=== PATIENT | female | born 1995 | race African-American/Black ===

== ENCOUNTER 2023-08-05 16:05 | Outpatient (REF) | payer MEDICAID, OTHER, SELFPAY ==
--- NOTE | ~2023-08-05 | XR_ITS ---
EXAMINATION: XR CHEST CLINICAL INFORMATION: Weight loss and cervical lymphadenopathy COMPARISON: None available. TECHNIQUE: 2 views of the chest were obtained. FINDINGS: No significant abnormality is noted involving the heart, lungs, mediastinum, bony thorax or soft tissues. XR/XR chest 2V IMPRESSION: Unremarkable examination.
== END 2023-08-05 16:06 | disposition home or self-care (01) ==
LOC: HO.HHCX 16:05
PROVIDERS: Visit Provider Student in an Organized Health Care Education/Training Program
DX: R59.0 Localized enlarged lymph nodes (principal); R63.4 Abnormal weight loss
CPT/HCPCS: 36415; 71046; 80053; 84443

== ENCOUNTER 2023-08-05 16:12 | Outpatient (REF) | payer MEDICAID, SELFPAY | END 2023-08-05 16:13 | disposition home or self-care (01) | LOC: HO.HHCX 16:12 | PROVIDERS: Visit Provider Student in an Organized Health Care Education/Training Program | DX: Z13.89 Encounter for screening for other disorder (principal) ==

== ENCOUNTER 2023-08-05 16:29 | Outpatient (REF) | payer MEDICAID, SELFPAY ==
[2023-08-05 18:09] LABS: Alanine Aminotransferase 12 U/L (0-31); Albumin Level 4.7 g/dL (3.5-5.0); Alkaline Phosphatase 66 U/L (39-117); Anion Gap 11 (12-20); Aspartate Amino Transferase 17 U/L (5-31); Bilirubin Total 0.3 mg/dL (0.0-1.0); Blood Urea Nitrogen 10 mg/dL (9-16); Calcium 9.9 mg/dL (8.4-10.2); Carbon Dioxide 26 mmol/L (22-29); Chloride 105 mmol/L (96-108); Estimated Glomerular Filt Rate > 60; Glucose Random 86 mg/dL (60-115); Potassium 3.9 mmol/L (3.3-5.1); Sodium 138 mmol/L (135-145); Total Protein 8.2 g/dL (6.5-8.0)
[2023-08-05 18:25] LABS: TSH reflex Free T4 1.91 uIU/mL (0.32-4.0)
== END 2023-08-05 16:30 | disposition home or self-care (01) ==
LOC: HO.HHCL 16:29
PROVIDERS: Visit Provider Student in an Organized Health Care Education/Training Program
DX: R59.0 Localized enlarged lymph nodes (principal); R63.4 Abnormal weight loss
CPT/HCPCS: 36415; 80053; 84443

== ENCOUNTER 2023-08-09 08:24 | Outpatient (REF) | payer MEDICAID, OTHER, SELFPAY ==
[2023-08-09 11:32] LABS: Hematocrit 34.7 % (37.0-47.0); Hemoglobin 11.2 g/dl (12.0-16.0); Mean Corpuscular HGB Conc 32.3 g/dl (31.0-35.0); Mean Corpuscular Hemoglobin 27.1 pg (27.0-33.0); Mean Corpuscular Volume 83.8 fL (80.0-98.0); Mean Platelet Volume 11.4 fL (9.4-12.3); Platelet Count 269 X10*3/uL (160-400); Red Blood Count 4.14 X10*6/uL (4.20-5.50); Red Cell Distribution Width 13.5 % (11.0-16.0); White Blood Count 3.6 X10*3/uL (4.8-10.8)
[2023-08-09 11:43] LABS: Estimated Average Glucose 108 mg/dL; Hemoglobin A1c % 5.4 % (<6.0)
[2023-08-09 12:12] LABS: HBsAGNum1 0.35 S/CO (0.00-0.99); HIV AB/AG Nonreactive (Nonreactive); HIV Num 1 0.08 S/CO (0.00-0.99); Hepatitis B Core Antibody Nonreactive (Nonreactive); Hepatitis B Surface Antigen Negative (Negative); Syphilis Screen Nonreactive (Nonreactive); ~HepC Num1 0.14 S/CO (0.00-0.79); ~Hepatitis B Surface Antibody NONREACTIVE (Nonreactive); ~Hepatitis C Antibody Nonreactive (Nonreactive)
[2023-08-12 00:39] LABS: TS Negative Control Passed; TS Panel A 0; TS Panel B 0; TS Positive Control Passed; TSpotTB Negative (Negative)
== END 2023-08-09 08:25 | disposition home or self-care (01) ==
LOC: HO.HHCL 08:24
PROVIDERS: Visit Provider Student in an Organized Health Care Education/Training Program
DX: Z11.4 Encounter for screening for human immunodeficiency virus [HIV] (principal); R59.0 Localized enlarged lymph nodes; R63.4 Abnormal weight loss
CPT/HCPCS: 36415; 83036; 85027; 86481; 86704; 86706; 86780; 86803; 87340; 87389

== ENCOUNTER 2023-08-26 15:51 | Outpatient (REF) | payer SELFPAY ==
[2023-08-26 17:27] LABS: Hematocrit 34.9 % (37.0-47.0); Hemoglobin 11.4 g/dl (12.0-16.0); Mean Corpuscular HGB Conc 32.7 g/dl (31.0-35.0); Mean Corpuscular Hemoglobin 27.3 pg (27.0-33.0); Mean Corpuscular Volume 83.7 fL (80.0-98.0); Mean Platelet Volume 11.3 fL (9.4-12.3); Platelet Count 251 X10*3/uL (160-400); Red Blood Count 4.17 X10*6/uL (4.20-5.50); Red Cell Distribution Width 13.7 % (11.0-16.0); White Blood Count 4.9 X10*3/uL (4.8-10.8)
[2023-08-26 17:49] LABS: Iron 78 mcg/dL (30-160); Lactate Dehydrogenase 166 U/L (122-220); Percent Iron Saturation 32 % (15-50); Total Iron Binding Capacity 247 mcg/dL (228-428); Unsaturated Iron Binding 169 ug/dL
[2023-08-26 18:05] LABS: Ferritin 86 ng/mL (10-122)
[2023-08-26 18:17] LABS: Folate 10.5 ng/mL (> or = 4.0); Vitamin B12 541 pg/mL (200-900)
== END 2023-08-26 15:52 | disposition home or self-care (01) ==
LOC: HO.HHCL 15:51
PROVIDERS: Visit Provider Student in an Organized Health Care Education/Training Program
DX: R22.1 Localized swelling, mass and lump, neck (principal); D64.9 Anemia, unspecified
CPT/HCPCS: 36415; 82607; 82728; 82746; 83540; 83615; 85027

== ENCOUNTER 2023-11-07 13:51 | Outpatient (REF) | payer MEDICAID, OTHER, SELFPAY ==
[2023-11-07 16:31] LABS: TSH reflex Free T4 2.05 uIU/mL (0.32-4.0)
[2023-11-08 07:35] LABS: HIV AB/AG Nonreactive (Nonreactive); HIV Num 1 0.05 S/CO (0.00-0.99); ~HepC Num1 0.09 S/CO (0.00-0.79); ~Hepatitis C Antibody Nonreactive (Nonreactive)
[2023-11-08 09:40] LABS: CT PCR NOT DETECTED (Not Detect.); NG PCR NOT DETECTED (Not Detect.)
[2023-11-08 12:38] LABS: RPR Rapid Plasma Reagin NON-REACTIVE (NON-REACTIVE)
== END 2023-11-07 13:52 | disposition home or self-care (01) ==
LOC: HO.HHCL 13:51
PROVIDERS: Visit Provider General Practice
DX: D64.9 Anemia, unspecified (principal); Z11.3 Encounter for screening for infections with a predominantly sexual mode of transmission
CPT/HCPCS: 0353U; 36415; 84443; 86592; 86803; 87389

== ENCOUNTER 2024-04-28 13:45 | Emergency (ER) | payer MEDICAID, OTHER, SELFPAY ==
--- NOTE | ~2024-04-28 | US_ITS ---
EXAMINATION: US OBSTETRICAL ULTRASOUND CLINICAL INFORMATION: Nausea and vomiting. Abdominal cramping. Confirm IUP. COMPARISON: None available. LMP: 03/21/2024. Gestational age by maternal dates is 5 weeks 3 days. Estimated date of delivery by maternal dates is 12/26/2024. TECHNIQUE: Transabdominal and transvaginal imaging was obtained. FINDINGS: There is a single intrauterine gestational sac with visible yolk sac, embryo/fetus, and cardiac activity. Heterogeneous echogenicity adjacent to the gestational sac measuring approximately 3.8 x 2.4 cm. Findings may represent subchorionic hemorrhage. HR: 121 beats per minute. CRL (crown rump length): 0.7 cm (6 weeks 5 days +/- 4 days). ELANA (estimated date of delivery): 12/17/2024 +/- 4 days. MATERNAL ADNEXA: The right maternal ovary measures 4 x 2.2 x 3 cm. Probable right ovarian corpus luteum measuring up to 2.5 cm. The left maternal ovary measures 3.9 x 2.2 x 2.5 cm. Doppler detectable vascular flow within the right and left ovary. No maternal pelvic ascites. US/US OB pelvic and transvaginal IMPRESSION: 1. Single intrauterine gestation with ultrasound gestational age of 6 weeks 5 days +/- 4 days. 2. Estimated date of delivery is 12/17/2024 +/- 4 days. 3 3. Probable subchorionic hemorrhage measuring up to 3.8 cm. Electronically signed by: Jose Freed MD 04/28/2024 04:06 PM [facility]
[2024-04-28 13:52] VITALS: BP 99/79; PULSE 108; RESP 16; TEMP 36.6; O2SAT 100; BMI 19.6
--- NOTE | 2024-04-28 13:53 | ED.GENADULT ---
HPI - General Adult General Chief complaint: General Medical Stated complaint: preg+, not feeling well Time Seen by Provider: 04/28/24 14:27 Source: patient and tapping machine operator automatic Mode of arrival: ambulatory Limitations: language barrier History of Present Illness ED Provider: Annabel HPI narrative: Patient is a 28-year-old Irish Creole speaking female presenting to the emergency department with complaint of nausea and vomiting for the past 2 weeks as well as epigastric pain associated with vomiting, recent positive test. States that she went to the clinic and had confirmed there, is following up with [facility] for her care but has not been seen there yet. She does report some dark colored urine but denies frequency, dysuria, foul odor, back or flank pain. Denies fevers. Denies diarrhea. Denies any vaginal bleeding or other abnormal vaginal discharge. MD complaint: Nausea and vomiting Onset (ago): week(s) Treatments prior to arrival: none Related Data Previous Rx's ?Medication ?Instructions ?Recorded cephalexin 500 mg capsule 500 mg PO QID #28 caps 04/28/24 ondansetron HCl 4 mg tablet 4 mg PO Q8H PRN nausea and 04/28/24 vomiting #14 tabs Allergies Allergy/AdvReac Type Severity Reaction Status Date / Time No Known Allergies Allergy Verified 04/28/24 13:59 Review of Systems Review of Systems: As per HPI Yes all other systems are reviewed and are negative Constitutional: Constitutional: Reports as per HPI [facility] Social History Social History (System 08/29/23 @ 13:47 by Roxanne Marie) Advance Directives: No Advance Directives Information Provided: No Physical Exam ED Vital Signs: Vital Signs - 24 hr 04/28/24 13:52 Temperature 97.9 F Pulse Rate 108 H Respiratory Rate 16 Blood Pressure 99/79 Pulse Oximetry 100 Oxygen Delivery Method Room Air BMI result Body Mass Index 19.6 Vital signs have been reviewed and appear to be correct. Blood pressure normal. Heart rate mildly tachycardic. Respiratory rate normal. Temperature normal. Oxygen saturation normal. Const General: cooperative, healthy appearing and no acute distress Orientation/consciousness: oriented to person, oriented to place, oriented to time and patient oriented x3 Limitations: no limitations HENMT Head: Yes normocephalic and Yes atraumatic Ears: external ears normal General nose exam: Normal external nose present Face and sinus: Yes face symmetric Mouth: oropharynx normal and moist mucous membranes Throat: Yes uvula midline Eyes Pupils: Equal, round and reactive pupils present Neck Neck: Yes normal visual inspection and Yes supple Resp Effort & Inspection: normal respiratory effort and able to speak in complete sentences Auscultation: clear to auscultation bilaterally Cardio Rate: regular rate Rhythm: regular rhythm Heart sounds: S1 normal heart sound present and S2 normal heart sound present GI Palpation (GI): Soft to palpation and nontender Auscultation: normoactive bowel sounds General: Yes no CVA tenderness Back/Spine/Pelvis Back: no CVA tenderness Skin General skin exam: elasticity normal and turgor normal Neuro General: oriented to person, oriented to place, oriented to time, patient oriented x3, moves all extremities, no focal motor deficits and CN's II-XI intact bilaterally Cranial nerves: Yes Equal, round and reactive pupils present Cognition (Neuro): normal cognition Extrem General: Yes full ROM, Yes no pedal edema and Yes no calf tenderness Psych Mental Status: mental status grossly normal Affect: normal affect Thought process: Normal thought process present Course Course Course Narrative: This is a Rapid Medical Examination (RME) performed by Uriel Blankenship PA-C in triage. Full HPI, ROS, assessment and treatment plan per primary provider in the Main ED. 28 yo female currently here w/ dizziness, chest pain, vomiting, lower abd pain, decreased PO intake x2 weeks. no vaginal bleeding. admits to epistaxis x2 days. LMP 03/21, states she has seen a provider who has confirmed however is unsure how far along she is. Plan: blood work, UA, hcg, ultrasound, ekg Medical Decision Making Medical Decision Making MDM Narrative: Patient is a 28-year-old Irish Creole speaking female presenting to the emergency department with complaint of nausea and vomiting for the past 2 weeks as well as epigastric pain associated with vomiting, recent positive test. On exam patient is awake, A+Ox3, mildy tachycardic, VS otherwise WNL, afebrile, normal neurological exam without focal deficits, physical exam findings as above. Given reported symptoms and physical exam findings, initial differential includes intrauterine , ectopic , UTI, electrolyte abnormality. Labs notable for mild anemia, no electrolyte abnormalities, HCG of 76,906. Urinalysis notable for 3+ leukocytes, 21-50 WBCs, 4+ bacteria, will treat for UTI. Patient signed out to LIBIA Batista, pending results of ultrasound. Video Irish Creole tapping machine operator automatic was utilized for all interactions, assessments, and discussions. Differential Diagnosis Differential Diagnoses: The differential diagnosis associated with the presentation includes As per [facility] Admission/Observation Consideration of admission/observation: Escalation of care including admission/observation considered Patient would have been admitted to the hospital had their work up had any findings where hospital admission was appropriate and their clinical presentation warranted hospital admission. Lab Data [facility] Lab Attestation statement: I reviewed the patient's lab results. As per [facility] 04/28/24 14:19 04/28/24 14:19 Labs: Lab Results 04/28/24 Range/Units 14:19 WBC 7.4 (4.8-10.8) X10*3/uL RBC 4.17 L (4.20-5.50) X10*6/uL Hgb 11.4 L (12.0-16.0) g/dl Hct 34.4 L (37.0-47.0) % MCV 82.5 (80.0-98.0) fL MCH 27.3 (27.0-33.0) pg MCHC 33.1 (31.0-35.0) g/dl RDW 13.1 (11.0-16.0) % Plt Count 279 (160-400) X10*3/uL MPV 9.8 (9.4-12.3) fL Immature Gran % (Auto) 0.3 (0.0-0.4) % Neut % (Auto) 77.9 H (45-73) % Lymph % (Auto) 14.8 L (20-40) % [place] % (Auto) 6.6 (2-11) % Eos % (Auto) 0.1 (0-4) % Baso % (Auto) 0.3 (0-2) % Lymph # (Auto) 1.1 L (1.2-4.9) X10*3/uL [place] # (Auto) 0.5 (0.1-1.2) X10*3/uL Eos # (Auto) 0.0 (0.0-0.4) X10*3/uL Baso # (Auto) 0.0 (0.0-0.2) X10*3/uL Abs Immat Gran (auto) 0.02 (0.00-0.03) X10*3/uL Absolute Neuts (auto) 5.8 (2.0-8.3) x10*3/uL Absolute Nucleated RBC 0.000 (0.0-0.012) X10*3/uL Nucleated RBC % (auto) 0.0 (0.0-0.2) /100WBC Sodium 137 (135-145) mmol/L Potassium 3.3 (3.3-5.1) mmol/L Chloride 102 (96-108) mmol/L Carbon Dioxide 24 (22-29) mmol/L Anion Gap 14 (12-20) BUN 7 L (9-16) mg/dL Creatinine 0.78 (0.5-1.4) mg/dL Estim Creat Clear Calc 86.2 Estimated GFR > 60 Random Glucose 102 (60-115) mg/dL Calcium 10.1 (8.4-10.2) mg/dL Magnesium 2.4 (1.6-2.6) mg/dL Total Bilirubin 0.6 (0.0-1.0) mg/dL AST 24 (5-31) U/L ALT 20 (0-31) U/L Alkaline Phosphatase 65 (39-117) U/L Troponin I High Sens < 2.7 (<3.5-17.0) ng/L Total Protein 8.1 H (6.5-8.0) g/dL Albumin 4.7 (3.5-5.0) g/dL Lipase 11 (8-78) U/L Beta HCG, Quant 60926 mIU/mL Urine Color Dark Yellow Urine Appearance Turbid Urine pH 6.5 (5.0-9.0) Ur Specific [place] >= 1.030 H (1.005-1.025) Urine Protein 30 (1+) H (Neg-Trace) mg/dL Urine Glucose (UA) Negative (Negative) mg/dL Urine Ketones >=160 (Negative) mg/dL Urine Blood Negative (Negative) Urine Nitrite Negative (Negative) Ur Leukocyte Esterase Large (3+) H (Negative) Urine RBC 0-2 (0-2) /HPF Urine WBC 21-50 H (0-5) /HPF Ur Squamous Epith Cells >20 (0-2) /HPF Urine Bacteria 4+ (None Seen) Hyaline Casts 3-5 (0-2) /LPF Urine Test POSITIVE H (NEGATIVE) Influenza Type A (PCR) NEGATIVE (Negative) Influenza Type B (PCR) NEGATIVE (Negative) RSV RNA Qual (PCR) NEGATIVE (Negative) SARS-CoV-2 RNA (RT-PCR) NEGATIVE (Negative) External Record Review External record reviewed: Inpatient record, Office record and Outpatient record Prescription Management I considered prescription management with: Antibiotic and Other Discharge Plan Discharge Clinical Impression: Urinary tract infection, Patient Disposition: Still a Patient Instructions: (ED), Urinary Tract Infection in (ED), at 7 to 10 Weeks (ED), at 11 to 14 Weeks (ED) Additional Instructions: You were evaluated in the emergency department today for nausea and vomiting in the setting of . Your labs were reassuring. Your urine appears infected and you are being treated with an antibiotic. Complete the full course as prescribed. Follow up with [facility] as planned. You are being prescribed ondansetron for nausea, take as prescribed. Return if you develop fever, are unable to tolerate fluids by mouth, develop vaginal bleeding, or any other new or concerning symptoms. Prescriptions: New ondansetron HCl 4 mg tablet 4 mg PO Q8H PRN (Reason: nausea and vomiting) Qty: 14 0RF cephalexin 500 mg capsule 500 mg PO QID Qty: 28 0RF Referrals: [facility] [Provider Group] [facility] [Provider Group] Print Language: Gypsy Peter
--- NOTE | 2024-04-28 13:59 | ECG_ITS ---
Test Reason : CP Blood Pressure : / mmHG Vent. Rate : 093 BPM Atrial Rate : 093 BPM P-R Int : 148 ms QRS Dur : 068 ms QT Int : 364 ms P-R-T Axes : 082 053 007 degrees QTc Int : 452 ms Normal sinus rhythm Normal ECG No previous ECGs available Referred By: Hannah Blankenship Electronically Signed By:ILIANA YATES
[2024-04-28 14:24] LABS: MANUAL DIFF FLAG NO
[2024-04-28 14:27] LABS: Basophils Percent Auto 0.3 % (0-2); Eosinophils Percent Auto 0.1 % (0-4); Hematocrit 34.4 % (37.0-47.0); Hemoglobin 11.4 g/dl (12.0-16.0); Imm Gran Abs Auto 0.02 X10*3/uL (0.00-0.03); Imm Gran Pct Auto 0.3 % (0.0-0.4); Lymphocytes Absolute Auto 1.1 X10*3/uL (1.2-4.9); Lymphocytes Percent Auto 14.8 % (20-40); Mean Corpuscular HGB Conc 33.1 g/dl (31.0-35.0); Mean Corpuscular Hemoglobin 27.3 pg (27.0-33.0); Mean Corpuscular Volume 82.5 fL (80.0-98.0); Mean Platelet Volume 9.8 fL (9.4-12.3); Monocytes Absolute Auto 0.5 X10*3/uL (0.1-1.2); Monocytes Percent Auto 6.6 % (2-11); Neutrophils Absolute Auto 5.8 x10*3/uL (2.0-8.3); Neutrophils Percent Auto 77.9 % (45-73); Platelet Count 279 X10*3/uL (160-400); Red Blood Count 4.17 X10*6/uL (4.20-5.50); Red Cell Distribution Width 13.1 % (11.0-16.0); White Blood Count 7.4 X10*3/uL (4.8-10.8)
[2024-04-28 14:28] LABS: Appearance Urine Turbid; Color Urine Dark Yellow; Glucose Urine UA Negative (Negative); Leukocyte Esterase Urine Large (3+) (Negative); Nitrite Urine Negative (Negative); PH 6.5 (5.0-9.0); Specific Gravity - Urine >= 1.030 (1.005-1.025); UMIC TRIGGER UACC YES; Urine Blood Negative (Negative); Urine Ketones >=160 mg/dL (Negative); Urine Pregnancy POSITIVE (NEGATIVE); Urine Protein 30 (1+) mg/dL (Neg-Trace)
[2024-04-28 14:29] LABS: UPreg QC Valid YES
[2024-04-28 14:30] LABS: Bacteria Urine 4+ (None Seen); RBC Urine 0-2 /HPF (0-2); Squamous Epithelial Cell Urine >20 /HPF (0-2); UACC Culture Trigger YES; WBC Urine 21-50 /HPF (0-5)
[2024-04-28 14:51] LABS: Alanine Aminotransferase 20 U/L (0-31); Albumin Level 4.7 g/dL (3.5-5.0); Alkaline Phosphatase 65 U/L (39-117); Anion Gap 14 (12-20); Aspartate Amino Transferase 24 U/L (5-31); Bilirubin Total 0.6 mg/dL (0.0-1.0); Blood Urea Nitrogen 7 mg/dL (9-16); Calcium 10.1 mg/dL (8.4-10.2); Carbon Dioxide 24 mmol/L (22-29); Chloride 102 mmol/L (96-108); Creatinine Clr Calc Pharmacy 86.2; Estimated Glomerular Filt Rate > 60; Glucose Random 102 mg/dL (60-115); Lipase 11 U/L (8-78); Magnesium 2.4 mg/dL (1.6-2.6); Potassium 3.3 mmol/L (3.3-5.1); Sodium 137 mmol/L (135-145); Total Protein 8.1 g/dL (6.5-8.0)
[2024-04-28 14:52] LABS: Troponin-I High Sensitivity < 2.7 ng/L (<3.5-17.0)
[2024-04-28 15:05] LABS: Influenza A PCR NEGATIVE (Negative); Influenza B PCR NEGATIVE (Negative); Resp Syncy Virus RNA Qual PCR NEGATIVE (Negative); SARS COV2 PCR INHOUSE NEGATIVE (Negative)
[2024-04-28 15:07] LABS: HCG Quantitative 76906 mIU/mL
[2024-04-28] MEDS: Ondansetron ODT 4 MG TAB.RAPDIS TRANSLINGU (16:08)
[2024-04-28 16:38] VITALS: BP 92/56; PULSE 86; RESP 18; TEMP 36.6; O2SAT 100
[2024-04-28 17:17] VITALS: BP 97/74; PULSE 89; RESP 18; TEMP 36.4; O2SAT 100
== END 2024-04-28 17:22 | disposition still patient (30) ==
PROVIDERS: Physician Assistant Medical; Emergency Provider Emergency Medicine; PCP General Practice
DX: O23.41 Unspecified infection of urinary tract in pregnancy, first trimester (principal); N39.0 Urinary tract infection, site not specified; Z3A.01 Less than 8 weeks gestation of pregnancy; Z03.818 Encounter for observation for suspected exposure to other biological agents ruled out
CPT/HCPCS: 0241U; 76801; 76817; 80053; 81001; 81025; 83690; 83735; 84484; 84702; 85025; 87086; 87088; 93005; 99284

== ENCOUNTER → 2024-04-28 13:59 | Outpatient (BNV) | payer MEDICAID, SELFPAY | PROVIDERS: Emergency Provider Emergency Medicine; PCP General Practice; Visit Provider Internal Medicine | DX: R07.9 Chest pain, unspecified (principal) | CPT/HCPCS: 93010 ==

== ENCOUNTER 2024-04-30 | Outpatient (REF) | payer MEDICAID, OTHER, SELFPAY ==
[2024-05-01 11:25] LABS: HPV 16,18/45 See PAP report
[2024-05-01 12:06] LABS: CT PCR NOT DETECTED (Not Detect.); NG PCR NOT DETECTED (Not Detect.)
[2024-05-01 15:58] LABS: Bacterial Vaginosis PCR POSITIVE (Negative); Candida Group PCR NOT DETECTED (Not Detect); Candida glab krusei PCR NOT DETECTED (Not Detect); Trichomonas vaginalis PCR NOT DETECTED (Not Detect)
== END 2024-04-30 00:01 | disposition home or self-care (01) ==
LOC: HO.HHCLNP
PROVIDERS: Visit Provider General Practice
DX: Z12.4 Encounter for screening for malignant neoplasm of cervix (principal)
CPT/HCPCS: 0352U; 87491; 87591; 87624; 88175

== ENCOUNTER 2024-05-01 12:55 | Outpatient (REF) | payer MEDICAID, OTHER, SELFPAY | END 2024-05-01 12:56 | disposition home or self-care (01) | LOC: HO.HHCLNP 12:55 | PROVIDERS: Visit Provider General Practice | DX: Z13.89 Encounter for screening for other disorder (principal) ==

== ENCOUNTER 2025-03-14 09:03 | Emergency (ER) | payer MEDICAID, SELFPAY ==
--- NOTE | ~2025-03-14 | US_ITS ---
EXAMINATION: US FIRST TRIMESTER OB HISTORY: rule out ectopic, miscarriage TECHNIQUE: Endovaginal scanning was performed. FINDINGS: There is a single intrauterine . The mean crown-rump length is 0.78 cm, corresponding to an estimated gestational age of 6 weeks and 5 days. No cardiac activity is identified, compatible with intrauterine demise. Right ovary: The right ovary measures 3.0 x 2.1 x 2.0 cm. Left ovary: The left ovary measures 2.6 x 1.7 x 1.6 cm. Cul-de-sac: No free fluid US/US OB pelvic and transvaginal IMPRESSION: Findings consistent with intrauterine demise at 6 weeks, 5 days. Electronically signed by: Jairo Jensen MD 03/14/2025 11:21 AM EDT
--- NOTE | 2025-03-14 09:32 | ED.FEMALEGU ---
HPI - Female Genitourinary General Chief complaint: Vaginal Bleeding Stated complaint: Vaginal bleeding, 10 wks Time Seen by Provider: 03/14/25 09:22 Source: patient, EMS, RN notes reviewed and old records reviewed Mode of arrival: ambulatory Limitations: no limitations History of Present Illness ED Provider: Sultana Butt PA-C HPI Narrative: Well-appearing 29-year-old female presenting to the emergency department today for evaluation of vaginal bleeding. Patient is endorsing 3 days of both low back and pelvic cramping followed by passing a small clot of blood at 02:00 this morning she has continued to spot and have mild cramping since that time. Patient shares with me a picture on her phone the clot is estimated to be about the size of a dime. Patient had an elective chemical 1 year ago and a healthy 6-year-old son who was born full term. She can not recall her blood type. She does not recall any specific complications during her 1st . She is denying any dysuria urgency or frequency. No pelvic trauma. She has not feel nauseous no vomiting. She does not feel lightheaded no respiratory symptoms or palpitations. As she is only 10 weeks her OBGYN appointment was not going to be for a few more weeks. She is established with [facility] senior account clerk. She did not reach out to them today. Cramping pain is rated at a 2/10 MD elicited complaint: vaginal bleeding Related Data Previous Rx's ?Medication ?Instructions ?Recorded cephalexin 500 mg capsule 500 mg PO QID #28 caps 04/28/24 ondansetron HCl 4 mg tablet 4 mg PO Q8H PRN nausea and 04/28/24 vomiting #14 tabs Allergies Allergy/AdvReac Type Severity Reaction Status Date / Time No Known Allergies Allergy Verified 03/14/25 09:39 Review of Systems Review of Systems: Yes all other systems are reviewed and are negative PMFSH Past Medical History Attestation statement: The following information was validated with the patient. Source: old records reviewed and nursing notes reviewed Social History Social History Smoked in Last 30 Days: No Use of substances other than those prescribed or required for medical reasons: No Advance Directives: No Advance Directives Information Provided: No Do you have a plan to hurt others: No Plan Patient : Yes Physical Exam Exam: Exam: General: Appears in no acute distress, appears well nourished body habitus is normal, appears stated age. No septic or ill-appearing. Vitals reviewed normal, PMH/Social and Surgical hx reviewed including allergies and current medications. - reviewed for prior visits here Head: Normocephalic, no obvious trauma or skin lesions noted. Eyes: EOMI ENMT: moist oral mucosa, uvula midline no trismus Neck: trachea midline, Cardiovascular: peripheral perfusion normal, Regular heart rate regular rhythm Respiratory: no respiratory distress lungs clear to auscultation bilaterally Abdomen: nondistended, nontender suprapubic region no CVA tenderness Extremities: warm and moving without difficulty unless otherwise detailed in physical exam if applicable. Psych: Cooperative Neuro: Alert and oriented. Vital Signs: Vital Signs: Last Vital Signs Temp 0 F L 03/14/25 13:42 Pulse 85 03/14/25 13:42 Resp 16 03/14/25 13:42 BP 97/54 L 03/14/25 13:42 Pulse Ox 99 03/14/25 13:42 O2 Del Method Room Air 03/14/25 13:42 BMI result Body Mass Index 23.3 Medical Decision Making Medical Decision Making MDM Narrative: Well-appearing 29-year-old female who is presenting to the emergency department today for evaluation of vaginal bleeding. History and physical as above. Upon arrival to ED patient was afebrile and normotensive and has a soft nontender abdomen but given that she reports being approximately 10 weeks with the spotting a transvaginal ultrasound was ordered for potential concern of ectopic but pain does not seem to be out of proportion at this time. Also can not rule out demise threatened or active miscarriage. She has no urinary symptoms what we will order blood work and UA. 1330: Called blood bank directly they just resulted she does not need RhoGAM she is O positive and negative for any antibodies Discussed case with my attending physician Dr. Robison, there is no current OBGYN crane ladle person. Will defer mosprostol to outpatient if needed. OBGYN follow up information given to patient along with ER return precautions. Differential Diagnosis Differential Diagnoses: The differential diagnosis associated with the presentation includes threatened miscarriage secondary to demise ectopic normal physiologic spotting in Admission/Observation Consideration of admission/observation: Escalation of care including admission/observation considered Consult Healthcare Provider Management of the patient was discussed with: Flight Control Tower Operator (Placed call to [facility] VIDEO CAMERA OPERATOR due to no one crane ladle person and patient not needing surgery to ensure adequate HCG trending and to confirm plan for misoprostol) Lab Data [facility] Lab Attestation statement: I reviewed the patient's lab results. Patient's labs show microcytic anemia does not meet transfusion criteria this appears to be trended the same from last year CBC. No electrolyte imbalance no hepatobiliary disease. No liver dysfunction. Beta HCG level is 9869. 03/14/25 09:50 03/14/25 09:50 Labs: Lab Results 03/14/25 03/14/25 03/14/25 Range/Units 09:50 11:58 12:34 WBC 5.1 (4.8-10.8) X10*3/uL RBC 4.00 L (4.20-5.50) X10*6/uL Hgb 10.7 L (12.0-16.0) g/dl Hct 33.0 L (37.0-47.0) % MCV 82.5 (80.0-98.0) fL MCH 26.8 L (27.0-33.0) pg MCHC 32.4 (31.0-35.0) g/dl RDW 13.8 (11.0-16.0) % Plt Count 215 (160-400) X10*3/uL MPV 9.8 (9.4-12.3) fL Immature Gran % (Auto) 0.2 (0.0-0.4) % Neut % (Auto) 46.8 (45-73) % Lymph % (Auto) 40.9 H (20-40) % [place] % (Auto) 10.5 (2-11) % Eos % (Auto) 1.2 (0-4) % Baso % (Auto) 0.4 (0-2) % Lymph # (Auto) 2.1 (1.2-4.9) X10*3/uL [place] # (Auto) 0.5 (0.1-1.2) X10*3/uL Eos # (Auto) 0.1 (0.0-0.4) X10*3/uL Baso # (Auto) 0.0 (0.0-0.2) X10*3/uL Abs Immat Gran (auto) 0.01 (0.00-0.03) X10*3/uL Absolute Neuts (auto) 2.4 (2.0-8.3) x10*3/uL Absolute Nucleated RBC 0.000 (0.0-0.012) X10*3/uL Nucleated RBC % (auto) 0.0 (0.0-0.2) /100WBC PT 13.7 H (10.9-12.4) SEC INR 1.2 H (0.9-1.1) Sodium 141 (135-145) mmol/L Potassium 3.5 (3.3-5.1) mmol/L Chloride 108 (96-108) mmol/L Carbon Dioxide 27 (22-29) mmol/L Anion Gap 10 L (12-20) BUN 7 L (9-16) mg/dL Creatinine 0.64 (0.5-1.4) mg/dL Estim Creat Clear Calc 109.9 Estimated GFR > 60 Random Glucose 103 (60-115) mg/dL Calcium 9.2 D (8.4-10.2) mg/dL Magnesium 2.0 (1.6-2.6) mg/dL Total Bilirubin 0.3 (0.0-1.0) mg/dL AST 19 (5-31) U/L ALT 16 (0-31) U/L Alkaline Phosphatase 54 (39-117) U/L Total Protein 7.0 (6.5-8.0) g/dL Albumin 4.5 (3.5-5.0) g/dL Beta HCG, Quant 9869 mIU/mL Urine Color Yellow Urine Appearance Clear Urine pH >= 9.0 (5.0-9.0) Ur Specific [place] 1.020 (1.005-1.025) Urine Protein Negative (Neg-Trace) mg/dL Urine Glucose (UA) Negative (Negative) mg/dL Urine Ketones Negative (Negative) mg/dL Urine Blood Moderate (2+) H (Negative) Urine Nitrite Negative (Negative) Ur Leukocyte Esterase Negative (Negative) Urine RBC 0-2 (0-2) /HPF Urine WBC 0-5 (0-5) /HPF Ur Squamous Epith Cells 0-2 (0-2) /HPF Urine Bacteria None Seen (None Seen) Hyaline Casts 0-2 (0-2) /LPF Blood Type O Positive Antibody Screen NEGATIVE Independent Interpretation I performed an independent interpretation of an: Ultrasound Interpretation: Intrauterine noted, i do not see any activity Radiology Impression Discussion of test interpretation with radiology: I have reviewed the radiologist's reading. Radiologist Impression: FINDINGS: There is a single intrauterine . The mean crown-rump length is 0.78 cm, corresponding to an estimated gestational age of 6 weeks and 5 days. No cardiac activity is identified, compatible with intrauterine demise. Prescription Management I considered prescription management with: Other Social Determinants Patient?s care significantly limited by Social Determinants of Health including: Other Social Determinant of Health Discharge Plan Discharge Clinical Impression: Incomplete miscarriage Patient Disposition: Home, Self-Care Instructions: Miscarriage (ED) Additional Instructions: You were seen in the emergency department today for vaginal bleeding. Unfortunately your workup today has shown that you are actively experiencing a miss carriage secondary to demise. Please wear a panty liner over the next few days. If you start to bleed through more than a pad or tampon an hour or experiencing worsening pain please return to the emergency department You may take Tylenol and Motrin for discomfort and cramping. Recommended that you have repeat blood work drawn to make sure that your hCG hormone is down trending. I am sorry for your loss. Prescriptions: No Action ondansetron HCl 4 mg tablet 4 mg PO Q8H PRN (Reason: nausea and vomiting) Qty: 14 0RF cephalexin 500 mg capsule 500 mg PO QID Qty: 28 0RF Referrals: [facility] [Provider Group, Obstetrics] - 2 days Referral Note: recheck HCG levels to trend down, miscarriage Stand Alone Forms: Work/School Release Interventions: ED Discharge Assessment Last Done: 03/14/25 13:42 Discharge Date/Time: 03/14/25 13:57 Print Language: Gypsy Peter
[2025-03-14 09:37] VITALS: BP 105/46; PULSE 85; RESP 16; TEMP 36.7; O2SAT 100; BMI 23.3
[2025-03-14 09:55] LABS: MANUAL DIFF FLAG NO
[2025-03-14 09:56] LABS: Hematocrit 33.0 % (37.0-47.0); Hemoglobin 10.7 g/dl (12.0-16.0); Imm Gran Abs Auto 0.01 X10*3/uL (0.00-0.03); Imm Gran Pct Auto 0.2 % (0.0-0.4); Lymphocytes Absolute Auto 2.1 X10*3/uL (1.2-4.9); Mean Corpuscular HGB Conc 32.4 g/dl (31.0-35.0); Mean Corpuscular Hemoglobin 26.8 pg (27.0-33.0); Mean Corpuscular Volume 82.5 fL (80.0-98.0); NRBC Abs Auto 0.000 X10*3/uL (0.0-0.012); NRBC Pct Auto 0.0 /100WBC (0.0-0.2); Platelet Count 215 X10*3/uL (160-400); Red Blood Count 4.00 X10*6/uL (4.20-5.50); White Blood Count 5.1 X10*3/uL (4.8-10.8)
[2025-03-14 10:01] LABS: INTERNATIONAL NORM RATIO 1.2 (0.9-1.1); Prothrombin Time 13.7 SEC (10.9-12.4)
[2025-03-14 10:13] LABS: Alanine Aminotransferase 16 U/L (0-31); Albumin Level 4.5 g/dL (3.5-5.0); Alkaline Phosphatase 54 U/L (39-117); Anion Gap 10 (12-20); Aspartate Amino Transferase 19 U/L (5-31); Blood Urea Nitrogen 7 mg/dL (9-16); Calcium 9.2 mg/dL (8.4-10.2); Carbon Dioxide 27 mmol/L (22-29); Chloride 108 mmol/L (96-108); Creatinine Clr Calc Pharmacy 109.9; Estimated Glomerular Filt Rate > 60; Magnesium 2.0 mg/dL (1.6-2.6); Potassium 3.5 mmol/L (3.3-5.1); Sodium 141 mmol/L (135-145); Total Protein 7.0 g/dL (6.5-8.0)
[2025-03-14 11:46] VITALS: BP 98/49; PULSE 82; RESP 18; O2SAT 100
--- OUTSIDE RECORDS SUMMARY | 2025-03-14 12:04 | XMS_ITS | Encounter Summary ---
Author Organization [employer] Address [address] [place] [address] Care Team Providers Care Blending Operator Name Role Phone Maria Elena Thornton MD Primary Care Provider Encounter Details Date Type Department Care Team (Late st Contact Info) Description 09/25/2024 Orders Only [facility] [address] [place], [place] [id number] Joyce Noguera Social History Tobacco Use Types Packs/Day Years Used Date Smoking Tobacco: Never Smokeless Tobacco: Never Alcohol Use Standard Drinks/Week Comments Never 0 (1 standard drink = 0.6 oz pur e alcohol) Depression Answer Date Recorded Patient Health Questionnaire-9 Score 0 11/07/2023 Patient Health Questionnaire-9 Score 0 11/07/2023 Last PHQ-9: Questionnaire Data Not on file 0 11/07/2023 Housing Stability Answer Date Recorded What is your housing situation today? I have sangita ruelas 08/25/[address] you li ve. Do you have problems with any of the following? None of the above 08/25/2023 Food Insecurity Answer Date Recorded Within the past 12 months, y ou worried that your food would run out before you got money to buy more: Never True 08/25/2023 Within the past 12 months,th e food you bought just didn't last and you didn't have enough money to get more: Never True Transportation Answer Date Recorded In the past 12 months, has l ack of transportation kept you from medical appts, meetings, work or from getting things needed for daily living? Yes, it has kept me from medical appointments or getting medications. 11/07/2023 Utilities Answer Date Recorded In the past 12 months, has t he electric, gas, oil or water company threatened to shut off services in your home? No 08/25/2023 Depression Answer Date Recorded Patient Health Questionnaire-2 Score 0 11/07/2023 Comments Yes Sex and Gender Information Value Date Recorded Sex Assigned at Female 08/04/2023 9:37 AM EST Legal Sex Female 9:35 AM EST Gender Identity Female 08/04/2023 9:37 AM EST Sexual Orientation Straight 08/04/2023 9: 37 AM EST documented as of this encounter Plan of Treatment Upcoming Encounters Date Type Department Care Team (Late st Contact Info) Description 04/22/2025 10:15 AM EST Office Visit [facility] [address] [place] [address] Nancy Gomez documented as of this encounter Procedures Procedure Name Priority Date/Time Associated Diagnosis Comments HPV MRNA E6/E7 REFLEX TO HPV 16, 18/45 Routine 04/30/2024 12:00 AM EST documented in this encounter Results * HPV mRNA E6/E7 w/Reflex to HPV Genotypes 16, 18/45 (04/30/2024 12:00 AM EST) Historical Provider LAB CYTOLOGY ORDERABLES F inal Result documented in this encounter Visit Diagnoses Not on filedocumented in this encounter Additional Health Concerns Assessment Noted Time PHQ-9 Depression Total Score: 0 11/07/19 24 1:18 PM EDT documented as of this encounter Care Teams Blending Operator Relationship Specialty Start Date End Date Maria Elena Thornton MD [address] [place] [address] PCP - General Family Medicine 11/07/23 documented as of this encounter
--- OUTSIDE RECORDS SUMMARY | 2025-03-14 12:04 | XMS_ITS | Encounter Summary ---
Author Organization [employer] Address [address] [place] [address] Care Team Providers Care Manager Oncology Name Role Phone Maria Elena Thornton MD Primary Care Provider [phone] Encounter Details Date Type Department Care Team (Late st Contact Info) Description 05/04/2024 Orders Only [facility] MEDICINE [address] [place], [place] [phone] Maria Elena Thornton MD [address] [place], [place] [phone] Social History Tobacco Use Types Packs/Day Years [...] is your housing situation today? I have sangitasuz[place] ruelas 08/25/[address] you [...] Description 04/22/2025 10:15 AM EST Office Visit [facility] ADULT DENTAL [address] [place] [phone] Nancy Gomez documented as of this encounter Visit Diagnoses Not on filedocumented in this encounter Additional Health Concerns Assessment Noted Time PHQ-9 Depression Total Score: 0 11/07/19 24 1:18 PM EDT documented as of this encounter Care Teams Manager Oncology Relationship Specialty Start Date End Date Maria Elena Thornton MD [address] [place] [address] PCP - General Family Medicine 11/07/23 documented as of this encounter
--- OUTSIDE RECORDS SUMMARY | 2025-03-14 12:04 | XMS_ITS | Clinical Summary ---
Author Organization [employer] Address [address] [place] [address] Care Team Providers Care Barber Or Beauty Shop Manager Name Role Phone Maria Elena Thornton MD Primary Care Provider [phone] Allergies No known active allergies Medications ibuprofen 600 MG tablet Take 1 tablet (600 mg) by mouth every 6 (six) hours if needed for mild pain for up to 20 doses. 20 tablet 01/31/20 25 Active Vit-Fe Fumarate-FA ( Vitamins) 28-0.8 MG tabletIndication s:Family Planning Take 1 tablet by mouth Once per day. 90 tablet 3 02/16/20 25 026 Active psyllium (Metamucil Smooth Texture) 58.6 % powderIndication s:Less than 8 weeks gestation of Take 5.12 g (3 g of fiber) by mouth if needed each day (constipatio n). 283 g 2 02/16/20 25 025 Active Thermometer misc 1 Device if needed each day (fever). 1 Units 10/21/19 24 025 Discontinued ibuprofen 600 MG tablet Take 600 mg by mouth every 6 (six) hours if needed. 025 Discontinued Vit-Fe Fumarate-FA ( Vitamins) 28-0.8 MG tabletIndication s:Family Planning Take 1 tablet by mouth Once per day. 90 tablet 3 10/13/19 25 025 Discontinued levonorgestrel-e thinyl estradiol (Aviane, Alesse, Lessina) 0.1-20 MG-MCG tabletIndication s:Family planning, BCP ( control pills) initial prescription Take 1 tablet by mouth Once per day. 84 tablet 3 10/13/19 25 025 Discontinued acetaminophen (Tylenol) 325 MG tabletIndication s:Family planning, BCP ( control pills) initial prescription TAKE 1 TABLET BY MOUTH EVERY 8 HOURS NEEDED FOR MODERATE PAIN OR FEVER 04/17/20 025 Discontinued Active Problems Problem Noted Date Diagnosed Date Family planning, BCP ( control pills) initial prescription 10/15/2024 Assessment & Plan (10/15/2024 8:39 AM EDT): Patient's test is negative in clinic (possible chemical from at home test?) and currently bleeding vaginally, so will start low-dose OCP. Advice given to take daily at the same time and to take continuously with one-week of bleeding expected during the withdrawal pills. If a pill is skipped or missed to take it as soon s she remembers. Use condoms with sexual encounters. Encounter for screening for cervical cancer 10/2023 04/17/2024 Assessment & Plan (04/17/2024 10:08 AM EST): [facility] urine HCG positive 04/17/24. . - Prescribe prenatals once a day 04/17/2024 - Referral to OBGYN 04/17/2024 - Recommended taking tylenol for pain, take every 8 hours. Avoid Ibuprofen. - ER precautions discussed. - Seek medical attention for worsening symptoms. Encounter to establish care with new doctor 10/28 Assessment & Plan (11/08/2023 12:49 PM EDT): STI screening done today Contraception offered and declined Pap due, followup in 3 months Multiple thyroid nodules 11/08/2023 Assessment & Plan (11/08/2023 12:51 PM EDT): TSH 2 today Followup with ultrasound in 6 months Anemia 08/26/2023 Assessment & Plan (10/22/2023 1:13 PM EDT): 07/2023 Hb 11.4 , iron panel wnl , Vit B 12/folic acid wnl, LDH wnl STIs neg Denies melenas, BRPR , hematuria ,denies menorrhagia -pt to start care w PCP next month Lymphadenopathy, cervical 08/08/2023 Assessment & Plan (11/08/2023 12:50 PM EDT): FNA done and normal Followup in 6 months with ENT at [facility] Assessment & Plan (10/22/2023 1:17 PM EDT): Pt w 2 month of mass sensation below chin , on exam likely enlarged submental Lymph node as well anterior cervical LDN bilaterally , no other abnormal LDNs palpated , from exam noted some few dark spots in palms Pt is from [facility], T-spot was neg but this does not r/o TB infection. HIV, syphilis , hepatitis , chem were neg, only mild anemia -08/09/2023 T-spot :neg, Hep B core neg,surf ab neg,surface ag neg , HIV neg ,Hep C neg ,syphilis neg ,hb1AC wnl, TSH ,chem wnl Hb 11.2, normocytic 08/2023 LDH wnl -CXR 07/2023 neg -CT soft tissue neck with contrast 09/14/2023 A small cluster of lymph nodes are present in the submental region. These are more than normally expected, but not pathologically enlarged.Small hypodense nodules are present in the bilateral thyroid gland measuring up to 6 mm on the right. The parotid and submandibular glands are maintained. - 08/2023 Flexible endoscope done was reported as normal -advised pt f up w ENT -Has apt coming in 10/26/2023 for f up and to consider for LN bx -will need thyroid US f up to monitor thyroid nodules in future -px thermometer to monitor temp at home and bring readings at next apt -Pt has apt w PCP Dr Thornton for 11/07/2023 For new pt apt Assessment & Plan (08/26/2023 10:30 AM EDT): Pt w 1 month of mass sensation below chin , on exam likely enlarged submental Lymph node as well anterior cervical LDN bilaterally , no other abnormal LDNs palpated , from exam noted some few dark spots in palms . No concerning symptoms for meningitis on exam with no neck rigidity. Possible symptoms are infectious as non infectious . Pt is from [facility], T-spot was neg but this does not r/o TB infection. HIV, syphilis , hepatitis , chem were neg, only mild anemia and leukopenia noted . Also malignancy as lymphoma needs to be r/o If neg infectious causes -08/09/2023 T-spot :neg, Hep B core neg,surf ab neg,surface ag neg , HIV neg ,Hep C neg ,syphilis neg ,hb1AC wnl, TSH ,chem wnl Hb 11.2, normocytic WBC 3.6--- denies menorrhagia -CXR 07/2023 neg -referred for neck US- Dennise is working today to get apt for pt for image ,given is taking longer that expected to have image done I am also referring to head and neck surgeon ( ENT) in system to see if can be soon-sent as STAT,she likely will need FNA if mass persist -alarm signs and symptoms discussed w pt and if feeling acutely ill and not able to have neck US to go to ER for acute evaluation -will f pt in 2 weeks and will call if any urgent lab -will repeat cbc , iron panel , LDH -Pt has apt w Dr Thornton for 11/07/2023 For new pt apt Assessment & Plan (08/08/2023 9:01 PM EDT): Pt w 3 days of mass sensation below chin , on exam likely enlarged submental Lymph node as well anterior cervical LDN bilaterally , no other abnormal LDNs palpated , from exam noted some few dark spots in palms . No concerning symptoms for meningitis on exam with no neck rigidity. Possible symptoms are infectious as non infectious . Pt is from [facility] and will need to elroy for Tb,HIV, syphilis w palm rash . Also malignancy as lymphoma needs to be r/o If neg infectious causes Flu ,covid ,strep neg today -will do complete set of labs , Tb screening for baseline--will not be diagnostic -referred for neck US and CXR -hydration ,supportive tx discussed -alarm signs and symptoms discussed w pt -will f pt in 2 weeks and will call if any urgent lab Resolved Problems Problem Noted Date Diagnosed Date Resolved Date Viral URI 04/17/2024 05/04/2024 Assessment & Plan (04/17/2024 10:21 AM EST): COVID, Flu and Strep negative. -No evidence of respiratory distress. Symptoms mild. -No evidence of dehydration. -Supportive care advised. -Isolation recommendations discussed. -ER precautions discussed. -Seek medical attention for worsening symptoms. Encounters Date Type Department Care Team Description 03/14/2025 Orders Only GENERIC EXTERNAL DATA DEPARTMENT Provider, Generic External Data 02/15/2025 10:00 AM EDT Office Visit [facility] [address] [place] [address] Derrek Chapa MD Constipation, unspecified constipation type (Primary Dx); Less than 8 weeks gestation of 02/15/2025 Travel 01/30/2025 9:30 AM EDT Office Visit [facility] [address] [place] [address] FrankMorena fritzricio 01/22/2025 9:45 AM EDT Office Visit [facility] [address] [place] [address] Tarka, Marilin, OD Myopia, bilateral (Primary Dx) 01/22/2025 Travel 01/02/2025 3:00 PM EDT Office Visit [facility] [address] [place] [address] Balaji Marie from Last 3 Months Immunizations Immunization Administration Dates Next Due Hep B, adult 11/07/2023 Tdap 11/07/2023 Social History Tobacco Use Types Packs/Day Years Used Date Smoking Tobacco: Never Smokeless Tobacco: Never Tobacco Cessation:Counseling Given: Not Answered Alcohol Use Standard Drinks/Week Comments Never 0 (1 standard drink = 0.6 oz pur e alcohol) Depression Answer Date Recorded Patient Health Questionnaire-9 Score 0 11/07/2023 Patient Health Questionnaire-9 Score 0 11/07/2023 Last PHQ-9: Questionnaire Data Not on file 0 11/07/2023 Housing Stability Answer Date Recorded What is your housing situation today? I have sangita jessenia 08/25/[address] you li [...] from getting things needed for daily living? No 10/05/2024 Utilities Answer Date Recorded In the past 12 months, has t he electric, gas, oil or water company threatened to shut off services in your home? No 08/25/2023 Depression Answer Date Recorded Patient Health Questionnaire-2 Score 0 11/07/2023 Internet Access Answer Date Recorded Internet Access Q1 Yes 10/05/2024 Internet Access Q2 Not on file 10/05/2024 Comments Unknown Intention Date Recorded No desire to become (finding) 0 10/12/2024 Sex and Gender Information Value Date Recorded Sex Assigned at Female 08/04/2023 9:37 AM EST Legal Sex Female 9:35 AM EST Gender Identity Female 08/04/2023 9:37 AM EST Sexual Orientation Straight 08/04/2023 9: 37 AM EST Last Filed Vital Signs Vital Sign Reading Time Taken Comments Blood Pressure 107/60 02/15/2025 9:44 AM EDT Pulse 88 02/15/2025 9:44 AM EDT Temperature 36.7 C (98 F) 02/15/2025 9:44 AM EDT Respiratory Rate 18 02/15/2025 9:44 AM EDT Oxygen Saturation 100% 02/15/2025 9:44 AM EDT Inhaled Oxygen Concentration - - Weight 61.7 kg (136 lb) 02/15/2025 9:44 AM EDT Height 162.6 cm (5' 4 ) 10/12/2024 4:08 PM EDT Body Mass Index 23.34 10/12/2024 4:08 PM EDT Plan of Treatment Upcoming Encounters Date Type Department Care Team (Late st Contact Info) Description 04/22/2025 10:15 AM EST Office Visit [facility] [address] [place] [address] Nancy Gomez Health Maintenance Due Date Last Done Comments Disability Screening 1995 Alcohol/Substance Use Screening 2005 HPV Vaccines (1 - 3-dose series) 2008 Hepatitis B Vaccines (2 of 3 - 19+ 3-dose series) 12/05/2023 11/07/2023 Depression Screening 11/06/2024 11/07/2023, 11/07/2023 Dental X-Ray: Bitewings 01/17/2025 01/17/2024 COVID-19 Vaccine (1 - 2023-2 5 season) 2025 Influenza Vaccine (#1) 2025 Dental Oral Exam 04/07/2025 10/04/2024, 01/17/2024 Dental Prophylaxis 04/07/2025 10/04/2024, 03/15/2024 Family Planning (PISQ) 10/15/2025 10/15/2024 SDOH Screening 11/09/2025 11/09/2024 Tobacco Screening 02/15/2026 02/15/2025 Cervical Cancer Screening 04/30/2027 Pap Smear 04/30/2027 04/30/2024 Dental X-Ray: Full Mouth 01/04/2028 025, 01/17/2024 HPV/Cotest 04/30/2029 04/30/2024 DTaP/Tdap/Td Vaccines (2 - T d or Tdap) 11/06/2033 11/07/2023 Zoster Vaccines (1 of 2) 11/01/2043 RSV Patients and Patients Aged 60 years or older (1 - 1-dose 75+ series) 2068 HIV Screening Completed 11/07/2023 Hepatitis C Screening Completed 11/07/2023 HIB Vaccines Aged Out No longer eligi ble based on patient's age to complete this topic Hepatitis A Vaccines Aged Out No long er eligible based on patient's age to complete this topic IPV Vaccines Aged Out No longer eligi ble based on patient's age to complete this topic Meningococcal B Vaccine Aged Out No l onger eligible based on patient's age to complete this topic Meningococcal Vaccine Aged Out No josie vanessa eligible based on patient's age to complete this topic Pneumococcal Vaccine: Pediatrics (0 to 5 Years) and At-Risk Patients (6 to 49) Years Aged Out No longer eligible b ased on patient's age to complete this topic RSV under 20 months Aged Out No longe r eligible based on patient's age to complete this topic Rotavirus Vaccines Aged Out No longer eligible based on patient's age to complete this topic Procedures Procedure Name Priority Date/Time Associated Diagnosis Comments US OB PELVIS TRANSVAGINAL Routine 03/14/2025 10:33 AM EDT HCG, TOTAL, QN Routine 03/14/2025 9:50 AM EDT MAGNESIUM Routine 03/14/2025 9:50 AM EDT COMPREHENSIVE METABOLIC PANEL Routine 03/14/2025 9:50 AM EDT PROTHROMBIN TIME-INR Routine 03/14/2025 9:50 AM EDT CBC WITH AUTO DIFFERENTIAL Routine 03/14/2025 9:50 AM EDT POCT , URINE Routine 02/15/2025 10:25 AM EDT Less than 8 weeks gestation of POCT URINALYSIS DIPSTICK Routine 02/15/2025 10:25 AM EDT Less than 8 weeks gestation of CASE PRESENTATION, DETAILED AND EXTENSIVE TREATMENT PLANNING Routine 01/30/2025 9:30 AM EDT 32 EXTRACTION, ERUPTED TOOTH OR EXPOSED ROOT (ELEVATION/FORCEPS REMOVAL) Routine 01/30/2025 9:30 AM EDT 17 EXTRACTION, ERUPTED TOOTH OR EXPOSED ROOT (ELEVATION/FORCEPS REMOVAL) Routine 01/30/2025 9:30 AM EDT 16 EXTRACTION, ERUPTED TOOTH OR EXPOSED ROOT (ELEVATION/FORCEPS REMOVAL) Routine 01/30/2025 9:30 AM EDT 1 EXTRACTION, ERUPTED TOOTH OR EXPOSED ROOT (ELEVATION/FORCEPS REMOVAL) Routine 01/30/2025 9:30 AM EDT CASE PRESENTATION, DETAILED AND EXTENSIVE TREATMENT PLANNING Routine 01/02/2025 3:00 PM EDT PANORAMIC RADIOGRAPHIC IMAGE Routine 01/02/2025 3:00 PM EDT 1,16,17,32 LIMITED ORAL EVALUATION - PROBLEM FOCUSED Routine 01/02/2025 3:00 PM EDT PROPHYLAXIS - ADULT Routine 10/04/2024 1 0:00 AM EDT Dental calculus Dental plaque PERIODIC ORAL EVALUATION - ESTABLISHED PATIENT Routine 10/04/2024 10:00 AM EDT PAP SMEAR Routine 04/30/2024 11:23 AM EST HPV MRNA E6/E7 REFLEX TO HPV 16, 18/45 Routine 04/30/2024 12:00 AM EST INTRAORAL - COMPLETE SERIES OF RADIOGRAPHIC IMAGES Routine 01/17/2024 10:30 AM EDT HEPATITIS C AB W/REFL TO HCV RNA, QN, PCR Routine 11/07/2023 1:53 PM EDT Screening examination for STI HIV 1/2 ANTIGEN/ANTIBODY, FOURTH GENERATION W/RFL Routine 11/07/2023 1:53 PM EDT Screening examination for STI from Last 3 Months or Most Recently Relevant to Health Maintenance Results * US OB Pelvis with Transvaginal (03/14/2025 10:33 AM EDT) Anatomical Region Laterality Modality Pelvis Ultrasound 03/14/2025 10:3 3 AM EDT Narrative 03/14/2025 11:24 AM EDT [place] [address] Ultrasound Report Signed Patient: Aleta Bennett MR#: [id number] 8 : 1995 Acct:[id number] Age/Sex: 29 / F ADM Date: 03/14/25 Loc: .ED Attending Dr: Ordering Physician: Sultana Butt PA-C Date of Service: 03/14/25 Procedure(s): US OB pelvic and transvaginal Accession Number(s): [id number] cc: Maria Elena Thornton; Sultana Butt PA-C Reason for Exam: rule out ectopic, misscarriage EXAMINATION: US FIRST TRIMESTER OB HISTORY: rule out ectopic, miscarriage TECHNIQUE: Endovaginal scanning was performed. FINDINGS: There is a single intrauterine . The mean crown-rump length is 0.78 cm, corresponding to an estimated gestational age of 6 weeks and 5 days. No cardiac activity is identified, compatible with intrauterine demise. Right ovary: The right ovary measures 3.0 x 2.1 x 2.0 cm. Left ovary: The left ovary measures 2.6 x 1.7 x 1.6 cm. Cul-de-sac: No free fluid US/US OB pelvic and transvaginal IMPRESSION: Findings consistent with intrauterine demise at 6 weeks, 5 days. Electronically signed by: Jairo Jensen MD 03/14/2025 11:21 AM EDT RP Dictated By: Jairo Jensen MD Signed By: <Electronically signed by Jairo Jensen MD in OV> 03/14/25 1121 DD/ 1033 TD/TT: 03/14/25 1047 Recreation Officer: Procedure Note Donotuseinterpreter, Image - 03/14/2025 [place] [address] Ultrasound Report Signed Patient: Gracy Bennett#: [id number] 8 : 1995Acct:[id number] Age/Sex: Date: 03/14/25 Loc: HO.ED Attending Dr: Ordering Physician: Sultana Butt PA-C Date of Service: 03/14/25 Procedure(s): US OB pelvic and transvaginal Accession Number(s): [id number] cc: Maria Elena Thornton; Sultana Butt PA-C Reason for Exam: rule out ectopic, misscarriage EXAMINATION: US FIRST TRIMESTER OB HISTORY: rule out ectopic, miscarriage TECHNIQUE: Endovaginal scanning was performed. FINDINGS: There is a single intrauterine . The mean crown-rump length is 0.78 cm, corresponding to an estimated gestational age of 6 weeks and 5 days. No cardiac activity is identified, compatible with intrauterine demise. Right ovary: The right ovary measures 3.0 x 2.1 x 2.0 cm. Left ovary: The left ovary measures 2.6 x 1.7 x 1.6 cm. Cul-de-sac: No free fluid US/US OB pelvic and transvaginal IMPRESSION: Findings consistent with intrauterine demise at 6 weeks, 5 days. Electronically signed by: Jairo Jensen MD 03/14/2025 11:21 AM EDT RP Dictated By: Jairo Jensen MD Signed By: <Electronically signed by Jairo Jensen MD in OV> 03/14/25 1121 DD/ 1033 TD/TT: 03/14/25 1047 Recreation Officer: [facility] External Provider IMG US PROCEDURES Edited Result - Final * (ABNORMAL) CBC auto differential (03/14/2025 9:50 AM EDT) White Blood Count 5.1 4.8 - 10.8 X10*3/uL [facility] Red Blood Count 4.00(L) 4.20 - 5.50 X10*6/uL [facility] Hemoglobin 10.7(L) 12.0 - 16.0 g/dl [facility] Hematocrit 33.0(L) 37.0 - 47.0 % [facility] Mean Corpuscular Volume 82.5 80.0 - 98.0 fL [facility] Mean Corpuscular Hemoglobin 26.8(L) 27.0 - 33.0 pg [facility] Mean Corpuscular HGB Conc 32.4 31.0 - 35.0 g/dl [facility] Red Cell Distribution Width 13.8 11.0 - 16.0 % [facility] Platelet Count 215 160 - 400 X10*3/uL [facility] Mean Platelet Volume 9.8 9.4 - 12.3 fL [facility] Neutrophils Percent Auto 46.8 45 - 73 % [facility] Imm Gran Pct Auto 0.2 0.0 - 0.4 % [facility] Lymphocytes Percent Auto 40.9(H) 20 - 40 % [facility] Monocytes Percent Auto 10.5 2 - 11 % [facility] Eosinophils Percent Auto 1.2 0 - 4 % [facility] Basophils Percent Auto 0.4 0 - 2 % [facility] NRBC Pct Auto 0.0 0.0 - 0.2 /100WBC [facility] Neutrophils Absolute Auto 2.4 2.0 - 8.3 x10*3/uL [facility] Imm Gran Abs Auto 0.01 0.00 - 0.03 X10*3/uL [facility] Lymphocytes Absolute Auto 2.1 1.2 - 4.9 X10*3/uL [facility] Monocytes Absolute Auto 0.5 0.1 - 1.2 X10*3/uL [facility] Eosinophils Absolute Auto 0.1 0.0 - 0.4 X10*3/uL [facility] Basophils Absolute Auto 0.0 0.0 - 0.2 X10*3/uL [facility] NRBC Abs Auto 0.000 0.0 - 0.012 X10*3/uL [facility] 03/14/2025 9:50 AM EDT 03/14/2025 9:53 AM EDT us Generic External Data Provider LAB BLOOD ORDERAB LES Final Result Performing Organization Address [facility] Co de Phone Number [facility] [address] [place] [phone] * (ABNORMAL) Prothrombin Time-INR (03/14/2025 9:50 AM EDT) Prothrombin Time 13.7(H) 10.9 - 12.4 SEC [facility] INTERNATIONAL NORM RATIO 1.2(H) 0.9 - 1.1 [facility] Comment:INTERNATIONAL NORMAL IZED RATIO (INR) REFERENCE RANGES Reference RangeFor patients not on anticoagulant therapy: 0.9 - 1.1INR ranges for oral anticoagulanttherapy:For prevention and treatment of venous thrombosis and pulmonary embolism: 2.0 - 3.0For acute myocardial infarction with aspirin therapy: 2.0 - 3.0For acute myocardial infarction without aspirin therapy: 3.0 - 4.0For patients with mechanical prosthetic heart valves: 2.5 - 3.5 03/14/2025 9:50 AM EDT 03/14/2025 9:53 AM EDT us Generic External Data Provider LAB BLOOD ORDERAB LES Final Result Performing Organization Address [facility] Co de Phone Number [facility] [address] [place] [phone] * hCG, Total, Quantitative (03/14/2025 9:50 AM EDT) HCG Quantitative 9,869 mIU/mL [facility] Comment:Weeks post LMP Appro ximate hCG(Last Menstrual Period) Range (mIU/ml)3 - 4 weeks 9 - 1304 - 5 weeks 75 - 2,6005 - 6 weeks 850 - 20,8006 - 7 weeks 4000 - 100,2007 - 12 weeks 11,500 - 289,72885 - 16 weeks 18,300 - 137,67897 - 29 weeks (2nd trimester) 1,400 - 53,29540 - 41 weeks (3rd trimester) 940 - 60,000The Richards B- hCG assay is used for the early detection ofpregnancy; it cannot be used to diagnose any conditionunrelated to . If a B-hCG level is not supportedby the clinical evidence, results should be confirmed by analternative method (qualitative urine hCG, for example). 03/14/2025 9:50 AM EDT 03/14/2025 9:53 AM EDT us Generic External Data Provider LAB BLOOD ORDERAB LES Final Result Performing Organization Address City/[facility]/ZIP Co de Phone Number [facility] [address] [place] [phone] * Magnesium (03/14/2025 9:50 AM EDT) Magnesium 2.0 1.6 - 2.6 mg/dL [facility] 03/14/2025 9:50 AM EDT 03/14/2025 9:53 AM EDT us Generic External Data Provider LAB BLOOD ORDERAB LES Final Result Performing Organization Address City/[facility]/ZIP Co de Phone Number [facility] [address] [place] [phone] * (ABNORMAL) Comprehensive Metabolic Panel (03/14/2025 9:50 AM EDT) Sodium 141 135 - 145 mmol/L [facility] Potassium 3.5 3.3 - 5.1 mmol/L [facility] Chloride 108 96 - 108 mmol/L [facility] Carbon Dioxide 27 22 - 29 mmol/L [facility] Anion Gap 10(L) 12 - 20 [facility] Urea Nitrogen (BUN) 7(L) 9 - 16 mg/dL [facility] Creatinine, Serum 0.64 0.5 - 1.4 mg/dL [facility] Creatinine Clr Calc Pharmacy 109.9 [facility] Comment:Provided height and weight: 162.56 cm,61.7 kg.eGFR (calculated from the MDRD study equation) and eCrCl(calculated from the Cockcroft-Gault equation) are based ondifferent parameters and may not yield comparable results.If eCrCl result is absurd, please check patient'sheight/weight. Estimated Glomerular Filt Rate >60 [facility] Comment:Chronic Kidney Disea se: Estimated GFR < 60 mL/min/1.70x8[place] Kidney Disease: Estimated GFR < 15 mL/min/1.73m2 Glucose 103 60 - 115 mg/dL [facility] Calcium 9.2 8.4 - 10.2 mg/dL [facility] Bilirubin, Total 0.3 0.0 - 1.0 mg/dL [facility] Aspartate Amino Transferase 19 5 - 31 U/L [facility] Alanine Aminotransferase 16 0 - 31 U/L [facility] Total Protein 7.0 6.5 - 8.0 g/dL [facility] Albumin Level 4.5 3.5 - 5.0 g/dL [facility] Alkaline Phosphatase 54 39 - 117 U/L [facility] 03/14/2025 9:50 AM EDT 03/14/2025 9:53 AM EDT us Generic External Data Provider LAB BLOOD ORDERAB LES Final Result [facility] [address] [place] [phone] * (ABNORMAL) POCT , urine manually resulted (02/15/2025 10:25 AM EDT) Preg Test, Ur Positive( A) Negative, Indeterminate, None Detected, Invalid, Specimen unsatisfactory for evaluation, Weakly Positive, 2+ Urine 02/15/2025 10:2 5 AM EDT us Derrek Chapa MD POINT OF CARE TEST ENTER/EDIT OR DERABLES Final Result * POCT urinalysis dipstick manually resulted (02/15/2025 10:25 AM EDT) Color, UA Yellow Clarity, UA Clear Glucose, UA Negative Bilirubin, UA Negative Ketones, UA Negative Spec Grav, UA 1.020 Blood, UA Negative Negative, None Detected pH, UA 7.0 Protein, UA Negative Urobilinogen, UA 0.2 Leukocytes, UA Negative Negative, Rare, Trace Nitrite, UA Negative Negative, None Detected Appearance, UA OK Urine 02/15/2025 10:2 5 AM EDT us Derrek Chapa MD POINT OF CARE TEST ENTER/EDIT OR DERABLES Final Result * Pap Smear (04/30/2024 11:23 AM EST) 04/30/2024 11:2 3 AM EST 05/01/2024 11:00 AM EST Angela [facility] - 05/03/2024 12:43 PM EST ----- ------- Name: Florence,Prima Age/Sex: 28/F : 1995 Unit#: [id number] Attend Dr: Maria Elena Thornton Re04/30/24 Status: DEP REF Location: [facility] Disch: ----- ------- SPEC : [id number] RECD: 05/01/24 STATUS: BREANNA MUÑOZ NUM: [id number] EUGENE: 04/30/24-[address] [facility] [address]: Maria Elena Thornton ENTERED: 05/01/24-111 SP TYPE: Pap Smr OTHR DR: ORDERED: Pap Smear Interpretation Satisfactory for evaluation. Negative for intraepithelial lesion or malignancy. Coccobacilli consistent with shift in vaginal rebecca. HPV High Risk: Negative HPV Genotyping 16: Negative HPV Genotyping 18: Negative Clinical Information LMP: 03/23/2024 Previous PAP test: Unknown date, WNL per pt Other history: Pt is 6 weeks , previous negative PAP [place] her [place] Material Received ThinPrep-Cervical ----- ------- Signed (signature on file) ALLY Johnson ([facility]) 05/03/24 1243 ----- ------- END OF REPORT Result [facility] Maria Elena Thornton MD LAB CYTOLOGY ORDERABLES Final Result Performing Organization Address [facility]/ZIP Co de Phone Number [facility] [address] [place] [phone] * HPV mRNA E6/E7 w/Reflex to HPV Genotypes 16, 18/45 (04/30/2024 12:00 AM EST) Result [facility] Historical Provider LAB CYTOLOGY ORDERABLES F inal Result * Hepatitis C Antibody with Reflex to HCV, RNA, Quantitative, Real-Time PCR (11/07/2023 1:53 PM EDT) Hepatitis C Antibody Nonreactive Nonreactive [facility] Comment:Antibodies to HCV no t detected; does not exclude early acuteHCV infection. Blood Venous blood specimen / Unknown 11/07/2023 1:53 PM EDT 11/07/2023 3:47 PM EDT Result [facility] Maria Elena Thornton MD LAB BLOOD ORDERABLES Final Res ult Performing Organization Address [facility] Co de Phone Number [facility] [address] [place] [phone] * HIV-1/2 Antigen and Antibodies, Fourth Generation, with Reflexes (11/07/2023 1:53 PM EDT) HIV AB/AG Nonreactive Nonreactive [facility] Comment:HIV-1 p24 Ag and/or HIV-1/HIV-2 Ab not detected.A test result that is nonreactive does not exclude thepossibility of exposure to or infection with HIV-1 and/orHIV-2. Nonreactive results in this assay for individualswith prior exposure to HIV-1 and/or HIV-2 may be due toantigen and antibody levels that are below the limit ofdetection of this assay.The HostmonsterniGlisten HIV Ag/Ab Combo assay result andsupplemental assay results should be interpreted inconjunction with the patient's clinical presentation,history and other laboratory results. If the results areinconsistent with clinical evidence, additional testing issuggested to confirm the result. Blood Venous blood specimen / Unknown 11/07/2023 1:53 PM EDT 11/07/2023 3:47 PM EDT us Maria Elena Thornton MD LAB BLOOD ORDERABLES Final Res ult [facility] [address] [place] [phone] from Last 3 Months or Most Recently Relevant to Health Maintenance Insurance [facility] FULL N FULL [id number] [facility] MEDICAID STAND ADULT Care Teams [employer] Manager Relationship Specialty Start Date End Date Maria Elena Thornton MD [address] [place] [id number] PCP - General Family Medicine 11/07/23
--- OUTSIDE RECORDS SUMMARY | 2025-03-14 12:04 | XMS_ITS | Encounter Summary ---
Author Organization [employer] Address [address] [place] [address] Care Team Providers Care Manager Of Disaster Recovery Name Role Phone Maria Elena Thornton MD Primary Care Provider [phone] Encounter Details Date Type Department Care Team (Late st Contact Info) Description 03/14/2025 Orders Only GENERIC EXTERNAL DATA DEPARTMENT Provider, Generic External Data Social History Tobacco Use Types Packs/Day Years [...] Q2 Not on file 10/05/2024 Comments Unknown Sex and Gender Information Value Date Recorded Sex Assigned at Female 08/04/2023 9:37 AM EST Legal Sex Female 9:35 AM EST Gender Identity Female 08/04/2023 9:37 AM EST Sexual Orientation Straight 08/04/2023 9: 37 AM EST documented as of this encounter Plan of Treatment Upcoming Encounters Date Type Department Care Team (Late st Contact Info) Description 04/22/2025 10:15 AM EST Office Visit [facility] [address] [place] [address] Nancy Gomez documented as of this encounter Procedures Procedure Name Priority Date/Time Associated Diagnosis Comments US OB PELVIS TRANSVAGINAL Routine 03/14/2025 10:33 AM EDT CBC WITH AUTO DIFFERENTIAL Routine 03/14/2025 9:50 AM EDT PROTHROMBIN TIME-INR Routine 03/14/2025 9:50 AM EDT HCG, TOTAL, QN Routine 03/14/2025 9:50 AM EDT MAGNESIUM Routine 03/14/2025 9:50 AM EDT COMPREHENSIVE METABOLIC PANEL Routine 03/14/2025 9:50 AM EDT documented in this encounter Results * US OB Pelvis with Transvaginal (03/14/2025 10:33 AM EDT) Anatomical Region Laterality Modality Pelvis Ultrasound 03/14/2025 10:3 3 AM EDT Narrative 03/14/2025 11:24 AM EDT [address] [address] Ultrasound Report Signed Patient: Aleta Bennett MR#: [id number] 8 : 1995 Acct:[id number] Age/Sex: 29 / F ADM Date: 03/14/25 Loc: HO.ED Attending Dr: Ordering Physician: Sultana Butt PA-C Date of Service: 03/14/25 Procedure(s): US OB pelvic and transvaginal Accession Number(s): [id number] cc: Maria Elena Thornton; Sultana Butt PA-C [...] Jairo Jensen MD 03/14/2025 11:21 AM EDT Dictated By: Jairo Jensen MD Signed By: <Electronically signed by Jairo Jensen MD in OV> 03/14/25 1121 DD/ 1033 TD/TT: 03/14/25 1047 Medical Records Director: Procedure Note Donotuseinterpreter, Image - 03/14/2025 [place] [address] Ultrasound Report Signed Patient: Ovi BennettR#: [id number] 8 : 1995Acct:[id number] Age/Sex: 29 FADM Date: 03/14/25 Loc: HO.ED Attending Dr: Ordering Physician: Sultana Butt PA-C Date of Service: 03/14/25 Procedure(s): US OB pelvic and transvaginal Accession Number(s): [id number] cc: Maria Elena Thornton; Sultana Butt PA-C [...] 03/14/25 1121 DD/ 1033 TD/TT: 03/14/25 1047 Medical Records Director: us External Provider IMG US PROCEDURES Edited Result - Final * hCG, Total, Quantitative (03/14/2025 9:50 AM EDT) HCG Quantitative 9,869 mIU/mL [facility] Comment:Weeks post LMP Appro ximate hCG(Last Menstrual Period) Range (mIU/ml)3 - 4 weeks 9 - 1304 - 5 weeks 75 - 2,6005 - 6 weeks 850 - 20,8006 - 7 weeks 4000 - 100,2007 - 12 weeks 11,500 - 289,25920 - 16 weeks 18,300 - 137,72142 - 29 weeks (2nd trimester) 1,400 - 53,18010 - 41 weeks (3rd trimester) 940 - [...] ORDERAB LES Final Result Performing Organization Address City/[facility]/ZIP Co de Phone Number [facility] [address] [place] [phone] * Magnesium (03/14/2025 9:50 AM EDT) Pathologist [facility] Magnesium 2.0 1.6 - 2.6 mg/dL [facility] 03/14/2025 9:50 AM EDT 03/14/2025 9:53 AM EDT Generic External Data Provider LAB BLOOD ORDERAB LES Final Result Performing Organization Address [facility] Co de Phone Number [facility] [address] [place] [phone] * (ABNORMAL) Comprehensive Metabolic Panel (03/14/2025 9:50 AM EDT) [facility] Sodium 141 135 - 145 mmol/L [facility] Potassium 3.5 3.3 - 5.1 mmol/L [facility] Chloride 108 96 - 108 mmol/L [facility] Carbon Dioxide 27 22 - 29 mmol/L [facility] Anion Gap 10(L) 12 - 20 [facility] Urea Nitrogen (BUN) 7(L) 9 - 16 mg/dL [facility] Creatinine, Serum 0.64 0.5 - 1.4 mg/dL [facility] Creatinine Clr Calc Pharmacy 109.9 [facility] Comment:Provided height and weight: 162.56 cm,61.7 kg.eGFR (calculated from the MDRD study equation) and eCrCl(calculated from the Cockcroft-Gault equation) are based ondifferent parameters and may not yield comparable results.If eCrCl result is absurd, please check patient'sheight/weight. Estimated Glomerular Filt Rate >60 [facility] Comment:Chronic Kidney Disea se: Estimated GFR < 60 mL/min/1.55v3Kcwsye Kidney Disease: Estimated GFR < 15 mL/min/1.73m2 Glucose 103 60 - 115 mg/dL [facility] Calcium 9.2 8.4 - 10.2 mg/dL [facility] Bilirubin, Total 0.3 0.0 - 1.0 mg/dL [facility] Aspartate Amino Transferase 19 5 - 31 U/L [facility] Alanine Aminotransferase 16 0 - 31 U/L [facility] Total Protein 7.0 6.5 - 8.0 g/dL [facility] Albumin Level 4.5 3.5 - 5.0 g/dL [facility] Alkaline Phosphatase 54 39 - 117 U/L [facility] 03/14/2025 9:50 AM EDT 03/14/2025 9:53 AM EDT us Generic External Data Provider LAB BLOOD ORDERAB LES Final Result Performing Organization Address [facility] Co de Phone Number [facility] [address] [place] [phone] * (ABNORMAL) Prothrombin Time-INR (03/14/2025 9:50 AM EDT) Prothrombin Time 13.7(H) 10.9 - 12.4 SEC [facility] INTERNATIONAL NORM RATIO 1.2(H) 0.9 - 1.1 [facility] Comment:INTERNATIONAL NORMAL IZED RATIO (INR) REFERENCE [...] ORDERAB LES Final Result Performing Organization Address [facility] Co de Phone Number [facility] [address] [place] [phone] * (ABNORMAL) CBC auto differential (03/14/2025 9:50 AM EDT) White Blood Count 5.1 4.8 - 10.8 X10*3/uL [facility] Red Blood Count 4.00(L) 4.20 - 5.50 X10*6/uL [facility] Hemoglobin 10.7(L) 12.0 - 16.0 g/dl [facility] Hematocrit 33.0(L) 37.0 - 47.0 % [facility] Mean Corpuscular Volume 82.5 80.0 - 98.0 fL [facility] Mean Corpuscular Hemoglobin 26.8(L) 27.0 - 33.0 pg [facility] Mean Corpuscular HGB Conc 32.4 31.0 - 35.0 g/dl [facility] Red Cell Distribution Width 13.8 11.0 - 16.0 % [facility] Platelet Count 215 160 - 400 X10*3/uL [facility] Mean Platelet Volume 9.8 9.4 - 12.3 fL [facility] Neutrophils Percent Auto 46.8 45 - 73 % [facility] Imm Gran Pct Auto 0.2 0.0 - 0.4 % [facility] Lymphocytes Percent Auto 40.9(H) 20 - 40 % [facility] Monocytes Percent Auto 10.5 2 - 11 % [facility] Eosinophils Percent Auto 1.2 0 - 4 % [facility] Basophils Percent Auto 0.4 0 - 2 % [facility] NRBC Pct Auto 0.0 0.0 - 0.2 /100WBC [facility] Neutrophils Absolute Auto 2.4 2.0 - 8.3 x10*3/uL [facility] Imm Gran Abs Auto 0.01 0.00 - 0.03 X10*3/uL [facility] Lymphocytes Absolute Auto 2.1 1.2 - 4.9 X10*3/uL [facility] Monocytes Absolute Auto 0.5 0.1 - 1.2 X10*3/uL [facility] Eosinophils Absolute Auto 0.1 0.0 - 0.4 X10*3/uL [facility] Basophils Absolute Auto 0.0 0.0 - 0.2 X10*3/uL [facility] NRBC Abs Auto 0.000 0.0 - 0.012 X10*3/uL [facility] 03/14/2025 9:50 AM EDT 03/14/2025 9:53 AM EDT us Generic External Data Provider LAB BLOOD ORDERAB LES Final Result [facility] [address] [place] [phone] documented in this encounter Visit Diagnoses Not on filedocumented in this encounter Additional Health Concerns Assessment Noted Time PHQ-9 Depression Total Score: 0 11/07/19 24 1:18 PM EDT documented as of this encounter Care Teams Manager Of Disaster Recovery Relationship Specialty Start Date End Date Maria Elena Thornton MD [address] [place] [address] PCP - General Family Medicine 11/07/23 documented as of this encounter
[2025-03-14 12:50] LABS: Appearance Urine Clear; Glucose Urine UA Negative (Negative); PH >= 9.0 (5.0-9.0); Specific Gravity - Urine 1.020 (1.005-1.025); UMIC TRIGGER UACC YES
--- NOTE | 2025-03-14 13:01 | PC.NURSE ---
verified with Adolfo in lab- received 2nd t&S
[2025-03-14 13:42] VITALS: BP 97/54; PULSE 85; RESP 16; TEMP -17.7; TEMP 0; O2SAT 99
== END 2025-03-14 13:57 | disposition home or self-care (01) ==
PROVIDERS: Physician Assistant Medical; Emergency Provider Emergency Medicine; PCP General Practice
DX: O03.4 Incomplete spontaneous abortion without complication (principal)
CPT/HCPCS: 36415; 76801; 76817; 80053; 81001; 83735; 84702; 85025; 85610; 86850; 86900; 86901; 99284

== ENCOUNTER → 2025-03-14 09:32 | Outpatient (BNV) | payer MEDICAID, SELFPAY | PROVIDERS: Emergency Provider Emergency Medicine; PCP General Practice; Visit Provider Radiology Diagnostic Radiology | DX: O02.1 Missed abortion (principal) | CPT/HCPCS: 76801; 76817 ==